=== PATIENT | male | born 1985 | race Caucasian/White ===

== ENCOUNTER 2018-06-25 09:16 | Emergency (ER) | payer MEDICAID ==
[2018-06-25] MEDS ORDERED: Sodium Chloride 0.9% 1,000 ML IV ONE (10:27)
[2018-06-25] MEDS ORDERED: fentaNYL 100 MCG/2 ML SDV IVPUSH ONE (10:32)
[2018-06-25] MEDS ORDERED: Ondansetron 4 MG/2 ML SDV IVPUSH ONE (10:32)
--- NOTE | 2018-06-25 10:32 | EDM.PDOC ---
ED HPI GENERAL MEDICAL PROBLEM - General Chief Complaint: Trauma Stated Complaint: LEFT RIB PAIN Time Seen by Provider: 06/25/18 10:26 Source of Information: Reports: Patient - History of Present Illness INITIAL COMMENTS - FREE TEXT/NARRATIVE: Patient presents for evaluation of left sided chest and abdomen pain since falling well trimming branches in a tree on Thursday, 23 June. He fell approximately 7 feet onto another branch and was then able to arrest his fall and eventually get down to the ground. Since then he's had severe pain and is having difficulty sleeping because of it. Some nausea but no vomiting. The most uncomfortable places are the lowest most left ribs and the area between the pelvis and the ribs. 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: NSAIDS - Related Data Allergies Allergy/AdvReac Type Severity Reaction Status Date / Time No Known Allergies Allergy Verified 06/25/18 09:40 Home Meds: Home Meds Albuterol [Ventolin HFA] 06/25/18 [History] Amphetamine/Dextroamphetamine [Adderall] 06/25/18 [History] clonazePAM [Clonazepam] 06/25/18 [History] Past Medical History Psychiatric History: Reports: ADD, Panic Attack Social & Family History - Tobacco Use Smoking Status *Q: Current Every Day Smoker Years of Tobacco use: 12 Packs/Tins Daily: 0.1 Review of Systems - Review of Systems Review Of Systems: See Below Respiratory: Denies: Shortness of Breath, Cough GI/Abdominal: Reports: Abdominal Pain (Left low flank pain.) Musculoskeletal: Reports: Other (Left low lateral chest wall and rib pain.) Skin: Reports: Other (He has a small wound of his left thumb that he states was from accidentally contacting the chainsaw during his accident. It is wrapped and duct tape and he does not wish it evaluated.) ED EXAM, GENERAL - Physical Exam Exam: See Below Exam Limited By: Other (He is restless and difficult to get him to focus on symptoms and questions.) General Appearance: Moderate Distress Neck: Non-Tender Respiratory/Chest: Normal Breath Sounds, Other (Right anterolateral low rib pain on palpation) Cardiovascular: Regular Rate, Rhythm GI/Abdominal: Tender (There is tenderness to palpation in the left flank region between the iliac crest and the lowest extent of the ribs. No peritoneal signs.) Back Exam: Normal Inspection Course - Vital Signs Text/Narrative:: The patient is very uncomfortable. He will receive normal saline 500 mL per hour 2 hours along with ondansetron 4 mg and fentanyl 100 g. He will need chest imaging and CT scanning of the abdomen and pelvis because of location and intensity of injuries. Last Recorded V/S: Last Vital Signs Temp 36.3 C 06/25/18 09:46 Pulse 84 06/25/18 09:46 Resp 15 06/25/18 09:46 BP 116/84 06/25/18 09:46 Pulse Ox 99 06/25/18 09:46 - Orders/Labs/Meds Labs: Laboratory Tests 06/25/18 06/25/18 Range/Units 10:27 10:45 WBC 8.0 (4.5-11.0) K/uL RBC 4.60 (4.30-5.90) M/uL Hgb 14.2 (12.0-15.0) g/dL Hct 42.8 (40.0-54.0) % MCV 93 (80-98) fL MCH 31 (27-31) pg MCHC 33 (32-36) % Plt Count 237 (150-400) K/uL Neut % (Auto) 53 (36-66) % Lymph % (Auto) 30 (24-44) % Blaine % (Auto) 11 H (2-6) % Eos % (Auto) 4 (2-4) % Baso % (Auto) 2 H (0-1) % Sodium 142 (140-148) mmol/L Potassium 4.8 (3.6-5.2) mmol/L Chloride 107 (100-108) mmol/L Carbon Dioxide 27 (21-32) mmol/L Anion Gap 8.1 (5.0-14.0) mmol/L BUN 16 (7-18) mg/dL Creatinine 0.8 (0.8-1.3) mg/dL Est Cr Clr Drug Dosing 139.41 mL/min Estimated GFR (MDRD) > 60 (>60) Glucose 95 (74-106) mg/dL Calcium 9.4 (8.5-10.1) mg/dL Meds: Medications Discontinued Medications Generic Name Dose Route Start Last Admin Trade Name Lynne PRN Reason Stop Dose Admin Fentanyl 100 mcg 06/25/18 10:32 06/25/18 10:42 Sublimaze IVPUSH 06/25/18 10:33 100 mcg ONETIME ONE Administration Sodium Chloride 1,000 mls @ 500 mls/hr 06/25/18 10:27 06/25/18 12:56 Normal Saline IV 06/25/18 12:26 500 mls/hr .BOLUS ONE Administration Sodium Chloride 80 mls @ 3.5 mls/sec 06/25/18 10:35 06/25/18 11:24 Normal Saline IV 06/25/18 10:36 3.5 mls/sec ONETIME ONE Administration Iopamidol 150 ml 06/25/18 10:45 06/25/18 11:23 Isovue-300 (61%) IV 06/25/18 10:46 100 ml . DIRECTED MIKE Administration Ondansetron HCl 4 mg 06/25/18 10:32 06/25/18 10:44 Zofran IVPUSH 06/25/18 10:33 4 mg ONETIME ONE Administration Sodium Chloride 10 ml 06/25/18 10:35 06/25/18 11:24 Saline Flush FLUSH 06/25/18 10:36 10 ml ONETIME ONE Administration - Radiology Interpretation Free Text/Narrative:: X-ray of left ribs with AP chest view ordered and reviewed by me shows no evidence of fracture or pneumothorax. CT Results Date: 06/25/18 (CT scan of abdomen/pelvis with IV contrast ordered because of concern for intra-abdominal organ injury shows no acute change.) - Re-Assessments/Exams Free Text/Narrative Re-Assessment/Exam: The patient received normal saline 1 L by rapid infusion. Also Zofran 4 mg IV and fentanyl 100 g IV. Following completion of imaging studies, the patient came to the nurse's desk and asked if he could go outside and smoke since I had not returned yet to review results. He appeared to be quite comfortable at that point. I returned later to review results and the patient was sitting on the edge of the cart looking more comfortable. I told him no acute findings were seen. I recommend ibuprofen or Aleve for symptoms. He stated that he was likely just going to use turmeric for any inflammation and pain. He was quite dramatic at the onset of the visit and given the presence of Adderall on his listed medications, there may have been some symptom amplification going on in the context of ADHD. He was discharged in good condition. 06/26/18 08:03 06/26/18 08:06 Departure - Departure Time of Disposition: 14:00 Disposition: Home, Self-Care 01 Condition: Good Clinical Impression: Contusion of ribs, Abdominal wall contusion - Discharge Information *PRESCRIPTION DRUG MONITORING PROGRAM REVIEWED*: Not Applicable *COPY OF PRESCRIPTION DRUG MONITORING REPORT IN PATIENT CORINE: Not Applicable Instructions: Contusion, [id number] Referrals: PCP,None [Primary Care Provider] - Forms: ED Department Discharge Additional Instructions: Use ibuprofen or Tylenol and/or turmeric for inflammation and help. Cold packs to painful areas 20 minutes off and on as helpful. Return to ER if feeling worse in anyway.
[2018-06-25] MEDS ORDERED: Sodium Chloride 0.9% 10 ML Syringe FLUSH ONE (10:35)
[2018-06-25] MEDS ORDERED: Sodium Chloride 0.9% 80 ML IV ONE (10:35)
[2018-06-25] MEDS ORDERED: Iopamidol 612 MG/ML 150 ML Bottle IV SCH (10:45)
--- NOTE | 2018-06-25 11:44 | CRLCR ---
INDICATION: Left chest trauma on June 23. TECHNIQUE: Chest x-ray and rib detail films. FINDINGS: The heart and mediastinum are normal. Lungs are clear. No contusion or hemothorax. No displaced rib fractures. Dictated by Tyler Washington MD @ Jun 25 2018 11:30AM Signed by Dr. Tyler Washington @ Jun 25 2018 11:42AM
--- NOTE | 2018-06-25 12:09 | CRLCT ---
INDICATION: Trauma TECHNIQUE: CT abdomen and pelvis acquired with IV contrast. 100 mL of Isovue 300 administered. COMPARISON: None available FINDINGS: Lower chest: Unremarkable. Liver: A subcentimeter hepatic low-density lesion on image 58, too small to characterize. Spleen: Unremarkable. Pancreas: Pancreatic divisum is not excluded. Gallbladder and bile ducts: Unremarkable. Adrenal glands: Unremarkable. Kidneys: No hydronephrosis. A 9 mm left renal cyst. GI tract: Unremarkable. Appendix is normal. Vascular structures: Unremarkable. Lymph nodes: Unremarkable. Miscellaneous: No free air or significant free fluid. Pelvic Organs: Unremarkable. Bones: A focal chronic appearing anterior compression deformity along the right aspect of the L1 vertebral body. IMPRESSION: No CT evidence of a visceral or vascular injury in the abdomen or pelvis. Dictated by Jeronimo Aceves MD @ 06/25/2018 12:07:22 PM Please note that all CT scans at this facility use dose modulation, iterative reconstruction, and/or weight-based dosing when appropriate to reduce radiation dose to as low as reasonably achievable. Dictated by: Jeronimo Aceves MD @ 06/25/2018 12:07:36 (Electronically Signed)
== END 2018-06-25 14:12 | disposition home or self-care (01) ==
LOC: JP.ED 09:16
DX: S20.212A Contusion of left front wall of thorax, initial encounter (principal); S30.1XXA Contusion of abdominal wall, initial encounter; F17.210 Nicotine dependence, cigarettes, uncomplicated; W14.XXXA Fall from tree, initial encounter
CPT/HCPCS: 36415; 71101; 74177; 80048; 85025; 96361; 96374; 96375; 99284; J2405; J3010; J7030